=== PATIENT | female | born 1995 | race Caucasian/White ===

== ENCOUNTER 2017-03-13 17:07 | Emergency (ER) | payer SELFPAY ==
[2017-03-13 17:30] VITALS: BP 115/77
[2017-03-13] MEDS ORDERED: LIDOCAINE VISCOUS 2% PO ONE (17:42)
== END 2017-03-14 04:58 | disposition left against medical advice (07) ==
LOC: ED 17:07
DX: J02.9 Acute pharyngitis, unspecified (principal); Z53.21 Procedure and treatment not carried out due to patient leaving prior to being seen by health care provider